=== PATIENT | male | born 1955 | race Asian ===

== ENCOUNTER 2025-01-29 14:30 | Inpatient (IN) | payer BC, OTHER ==
[2025-01-29 16:11] VITALS: BMI 27.3
[2025-01-29] MEDS ORDERED: ONDANSETRON 4 MG/2 ML VIAL IV PRN (17:04)
--- NOTE | 2025-01-29 17:16 | P.HP ---
Certification for Inpatient Patient admitted to: Inpatient With expected LOS: >2 Midnights Practitioner: I am a practitioner with admitting privileges, knowledge of patient current condition, hospital course, and medical plan of care. Services: Services provided to patient in accordance with Admission requirements found in Title 42 Section 412.3 of the Code of Federal Regulations Patient History Date of Service: 01/29/25 Reason for admission: pneumonia, hypoxemia History of Present Illness: 69yo M, PMH: HTN and NIDDM2 Brought to hospital as direct admit from [facility] due to RUL pneumonia with hypoxemia. Patient was in [place] for ~12 days and flew back 3 days ago. States he has been having worsening shortness of breath and cough. Possible subjective fever. He states several other travellers he was with have been sick in the last few days with similar symptoms, with some testing positive for flu, others negative. He reports dealing with a milder version for ~1 month - even before flying to [place], but worse in the last few days. He has taken claritin / zyrtec OTC, but nothing else. At [facility] he was given rocephin/azithro earlier ~1400 today. Reported afebrile there, WBC:9.0, Hgb: 13, Plt: 166. Negative for flu, covid, strep at [facility]. Cr: 1.5, d-dimer: 318. CXR with patchy opacities in the lungs, with area of consolidation in the right upper lung, consistent with pneumonia. At time of my interview - he reports slight improvement compare to when at [facility]. He is tachypneic with mild-moderate labored respirations. Needs to take a breath after 5-8 words. He is accompanied by a friend, who states he is a little better than when first showed up to [facility], and about the same since he left [facility]. No worsening. Allergies No Known Allergies Allergy (Unverified 01/29/25 16:29) Home Medications: Alfuzosin HCl 1 tab PO BEDTIME 01/29/25 Amlodipine [Norvasc*] 1 tab PO DAILY 01/29/25 Atorvastatin Calcium [Lipitor] 10 mg PO BEDTIME 01/29/25 Carvedilol [Coreg] 1 tab PO BID 01/29/25 Hydralazine [Apresoline*] 1 tab PO TID 01/29/25 Metformin HCl 1 tab PO BID 01/29/25 lisinopriL [Lisinopril] 1 tab PO DAILY 01/29/25 - Past Medical/Surgical History Has patient received pneumonia vaccine in the past: Yes Diabetic: No -: Hypertension -: NIDDM2 Past Surgical History: Patient denies surgical history - Family History Father -: Heart disease ([place] in late 50s) Notes: none Mother Notes: none - Social History Smoking Status: Former smoker (quit in ) Alcohol use: No CD- Drugs: No Caffeine use: No Place of Residence: Home Review of Systems 10-point ROS is otherwise unremarkable Physical Examination - Physical Exam General: Alert, Oriented x3, Other (labored respirations) HEENT: EOMI, Sclerae nonicteric Respiratory: Crackles/rales, Expiratory wheezes Cardiovascular: No edema, Regular rate/rhythm, No murmurs Gastrointestinal: Soft and benign, Non-distended, No tenderness Musculoskeletal: No contractures, No tenderness Integumentary: No rashes, No significant lesion Neurological: Normal speech, Normal strength at 5/5 x4 extr Assessment and Plan - Advance Directives Does patient have a Living Will: No Does patient have a Durable POA for Healthcare: No Physician Review Additional Text: Problem List acute hypoxemic respiratory failure secondary to pneumonia HTN NIDDM2 Covid, flu, strep negative at [facility] R sided pneumonia, with reportedly opacities in b/l lungs. CXR CD sent from [facility], however no PCs able to use CDs. Will obtain new CXR here, as well as labs. Per workup at [facility] - has source of infection, and SIRS 1/4, with tachypnea. Normal WBC, normal temp, currently not tachycardic. Check lactate, procal, labs received rocephin and azithro at [facility] a few hours ago. Ordered to resume tomorrow AM add steroids and nebs, pt with some wheezing Pulm consulted Telemetry Blood pressure elevated on arrival here, but patient is more dyspneic and somewhat uncomfortable appearing. He states he did take his meds this morning. Will recheck BP in ~20-30 min after he settles. IV hydralazine PRN if remains elevated confirm home meds, restart VTE: lovenox Code: full Dispo: home, ~3 days Time Spent Managing Pts Care (In Minutes): 70
[2025-01-29] MEDS ORDERED: D10W 125 ML IV PRN (17:53)
[2025-01-29] MEDS ORDERED: GLUCAGON 1 MG/VIAL IM PRN (17:53)
[2025-01-29] MEDS: HYDRALAZINE HCL 20 MG/ML VIAL IV PRN (18:25)
[2025-01-29 19:22] LABS: Albumin 2.8 g/dL (3.4-5.0); Albumin/Globulin Ratio 0.8 (1.1-1.8); Anion Gap 12.7 mEq/L (5.0-15.0); Bilirubin Total 0.5 mg/dL (0.2-1.0); Globulin 3.6 g/dL (2.3-3.5); Magnesium 1.6 mg/dL (1.6-2.4); Potassium 3.7 mEq/L (3.5-5.1); Protein, Total 6.4 g/dL (6.4-8.2)
[2025-01-29 19:26] LABS: Absolute Lymphocytes (CBC) 0.6 K/uL (0.7-4.9); Absolute Neutrophil 5.9 K/uL (1.8-8.0); Hematocrit 37.3 % (39.6-49.0); Hemoglobin 12.9 g/dL (13.6-17.9); Lymphocytes % 8.3 % (15.3-44.8); MCH 30.6 pg (27.0-35.0); MCHC 34.6 g/dL (32.0-36.0); MCV 88.5 fL (80-100); MPV 8.9 fL (7.6-11.3); Monocytes % 13.4 % (3.3-12.3); Neutrophils % 78.3 % (41.7-73.7); Nucleated Red Blood Cells % 0.1 % (0-0); Platelets 138 thou/uL (152-406); RBC Red Blood Cell Count 4.22 M/uL (4.33-5.43); Red Cell Distribution Width 14.8 % (12.1-15.2)
[2025-01-29] MEDS: INSULIN REGULAR (HUMAN) 100 UNIT/ML SQ SCH (20:09)
[2025-01-29] MEDS: carvediloL 12.5 MG TAB ONE (20:45)
[2025-01-29] MEDS: HYDRALAZINE HCL 25 MG TABLET ONE (20:46)
[2025-01-29] MEDS: carvediloL 12.5 MG TAB PO ONE (20:48)
[2025-01-29] MEDS: HYDRALAZINE HCL 25 MG TABLET PO ONE (20:48)
[2025-01-29] MEDS: ALBUTEROL 2.5 MG/3 ML NEB SOL NEB SCH (21:26)
[2025-01-29] MEDS: BUDESONIDE 0.5 MG/2 ML NEB ONE (22:01)
[2025-01-29] MEDS: AMLODIPINE 10 MG TAB PO ONE (22:13)
[2025-01-29] MEDS: lisinopriL 20 MG TAB PO ONE (22:13)
[2025-01-29] MEDS: METHYLPREDNISOLONE 40 MG INJ ONE (22:18)
[2025-01-29] MEDS: METHYLPREDNISOLONE 40 MG INJ IV SCH (22:22)
--- NOTE | 2025-01-29 22:24 | RAD REPORT ---
Procedure: Chest Single View HISTORY: Hypoxia COMPARISON: none FINDINGS: Moderate bilateral lung consolidations. No significant pleural effusion noted. The heart is normal size. IMPRESSION: Moderate bilateral lung consolidations presumably pneumonia. This should be followed until it has arjun ared to a postobstructive process/underlying mass
[2025-01-29] MEDS: BUDESONIDE 0.5 MG/2 ML NEB NEB SCH (22:27)
[2025-01-30 07:11] LABS: Absolute Lymphocytes (CBC) 0.5 K/uL (0.7-4.9); Absolute Monocytes 0.8 K/uL (0.1-1.3); Absolute Neutrophil 7.2 K/uL (1.8-8.0); Basophils % 0.1 % (0-1.3); Hematocrit 37.5 % (39.6-49.0); Lymphocytes % 6.5 % (15.3-44.8); MCH 30.9 pg (27.0-35.0); MCHC 34.6 g/dL (32.0-36.0); MCV 89.4 fL (80-100); MPV 9.3 fL (7.6-11.3); Monocytes % 8.8 % (3.3-12.3); Neutrophils % 84.6 % (41.7-73.7); Platelets 127 thou/uL (152-406); Red Cell Distribution Width 14.9 % (12.1-15.2)
[2025-01-30 07:27] LABS: Albumin 2.4 g/dL (3.4-5.0); Albumin/Globulin Ratio 0.6 (1.1-1.8); Anion Gap 12.9 mEq/L (5.0-15.0); Bilirubin Total 0.4 mg/dL (0.2-1.0); Globulin 3.8 g/dL (2.3-3.5); Potassium 3.9 mEq/L (3.5-5.1); Protein, Total 6.2 g/dL (6.4-8.2)
[2025-01-30] MEDS: AZITHROMYCIN IV 500 MG in NA CHLORIDE 0.9% 250 ML IVPB SCH (08:28)
[2025-01-30] MEDS: POTASSIUM CL SA 10 MEQ TAB PO ONE (08:29)
[2025-01-30] MEDS: CEFTRIAXONE 1,000 MG in NA CHLORIDE 0.9% 50 ML IVPB SCH (08:29)
[2025-01-30] MEDS: ENOXAPARIN 40 MG/0.4 ML SQ SCH (08:30)
[2025-01-30] MEDS: lisinopriL 20 MG TAB PO SCH (10:34)
[2025-01-30] MEDS: AMLODIPINE 10 MG TAB PO SCH (10:35)
[2025-01-30 10:36] LABS: Band Neutrophils 13 % (0-1); Differential Total Cells Count 100; Lymphocytes 8 % (15-42); Metamyelocytes 4 % (0-0); Monocytes 8 % (0-10); Myelocytes 2 % (0-0); Nucleated Red Blood Cells 1 /100WBC; Platelet Estimate ADEQ; Reactive Lymphocytes 1 %; Segmented Neutrophils 64 % (40-80)
[2025-01-30 10:37] LABS: Blood Morphology Comment NOT SEEN (NOT SEEN)
--- NOTE | 2025-01-30 12:43 | P.CNS ---
Date of Consult: 01/30/25 Reason for Consult: Pneumonia Chief Complaint: pneumonia, hypoxemia History of Present Illness: Patient is 69 years of age no prior significant pulmonary complaints apparently he just came back from [place] developed worse congestion cough shortness of breath does not smoke patient was found to have bilateral pulmonary infiltrates denies any fever or chills no chest pain Allergies No Known Allergies Allergy (Unverified 01/29/25 16:29) Home Medications: Alfuzosin HCl 1 tab PO BEDTIME 01/29/25 Amlodipine [Norvasc*] 1 tab PO DAILY 01/29/25 Atorvastatin Calcium [Lipitor] 10 mg PO BEDTIME 01/29/25 Carvedilol [Coreg] 1 tab PO BID 01/29/25 Hydralazine [Apresoline*] 1 tab PO TID 01/29/25 Metformin HCl 1 tab PO BID 01/29/25 lisinopriL [Lisinopril] 1 tab PO DAILY 01/29/25 - Past Medical/Surgical History Diabetic: No -: Hypertension -: NIDDM2 - Family History Father Medical History: Heart disease ([place] in late 50s) Notes: none Mother Notes: none - Social History Alcohol use: No CD- Drugs: No Caffeine use: No Place of Residence: Home Review of Systems 10-point ROS is otherwise unremarkable General: Weakness Respiratory: Cough, Shortness of Breath Physical Examination Temp Pulse Resp BP Pulse Ox 99.7 F 85 16 152/84 H 94 01/30/25 12:00 01/30/25 12:00 01/30/25 12:00 01/30/25 12:00 01/30/25 12:00 General: Alert, Oriented x3, Moderate distress Respiratory: Crackles/rales Cardiovascular: No edema, Regular rate/rhythm, Normal S1 S2 Gastrointestinal: Normal bowel sounds, Soft and benign Laboratory Data (last 24 hrs) 01/30/25 01/30/25 01/29/25 06:32 06:32 18:42 WBC 8.50 Hgb 13.0 L Hct 37.5 L Plt Count 127 L Sodium 128 L 128 L Potassium 3.9 3.7 BUN 31 H 28 H Creatinine 1.77 H 1.67 H Glucose 314 H 294 H Magnesium 2.0 1.6 Total Bilirubin 0.4 0.5 AST 65 H 57 H ALT 46 42 Alkaline Phosphatase 57 62 01/29/25 18:42 WBC 7.60 Hgb 12.9 L Hct 37.3 L Plt Count 138 L Sodium Potassium BUN Creatinine Glucose Magnesium Total Bilirubin AST ALT Alkaline Phosphatase - Problems (1) Pneumonia Current Visit: Yes Status: Acute Plan: Patient is 69 years of age admitted with severe community-acquired pneumonia has bilateral infiltrates patient has mild hyponatremia and renal insufficiency agree with the antibiotics and steroids for now patient is also hypoxic renal ultrasound urinalysis also had Lasix DC nebulized with budesonide Qualifiers: Pneumonia type: due to unspecified organism Laterality: bilateral
[2025-01-30] MEDS: FUROSEMIDE 40 MG/4 ML VIAL IV SCH (13:40)
[2025-01-30 14:37] LABS: Sqamous Epithelial None Seen /HPF (None Seen); Urine Bacteria <20 /HPF (<20); Urine Bilirubin NEGATIVE (Negative); Urine Blood 2+ (Negative); Urine Clarity Clear (Clear); Urine Color Colorless (Yellow); Urine Glucose 4+ (Over) (Negative); Urine Ketones NEGATIVE (Negative); Urine Micro Reflex YN NO BILL MICROSCOPIC; Urine Nitrite NEGATIVE (Negative); Urine Protein 2+ (Negative); Urine RBC <5 /HPF (None Seen); Urine Urobilinogen Normal (Normal); Urine WBC <5 /HPF (<5)
--- NOTE | 2025-01-30 16:16 | P.PN ---
Subjective Date of Service: 01/30/25 Chief Complaint: pneumonia, hypoxemia Patient is reporting shortness of breath. He is coughing and short of breath with speaking. He reports nonproductive cough. No recorded fever since admission. Physical Examination - Vital Signs Temperature: 98.4 F Blood Pressure: 117/67 Pulse: 80 Respirations: 14 Pulse Ox (%): 91 - Studies Laboratory Data (last 24 hrs) 01/30/25 01/30/25 01/29/25 06:32 06:32 18:42 WBC 8.50 Hgb 13.0 L Hct 37.5 L Plt Count 127 L Sodium 128 L 128 L Potassium 3.9 3.7 BUN 31 H 28 H Creatinine 1.77 H 1.67 H Glucose 314 H 294 H Magnesium 2.0 1.6 Total Bilirubin 0.4 0.5 AST 65 H 57 H ALT 46 42 Alkaline Phosphatase 57 62 01/29/25 18:42 WBC 7.60 Hgb 12.9 L Hct 37.3 L Plt Count 138 L Sodium Potassium BUN Creatinine Glucose Magnesium Total Bilirubin AST ALT Alkaline Phosphatase Assessment And Plan - Plan Physical examination General: Alert and oriented x3, NAD, HEENT: Conjunctiva not pale, anicteric sclera Neck: Supple, no elevated JVD Heart: Heart sounds 1 and 2 normal, regular rhythm, normal rate, no pedal edema Lungs: Bilateral crackles, mild scattered wheezes adequate breath sounds bilaterally. Abdomen: Soft, nondistended, nontender, normal bowel sounds. Extremities: No tenderness, no deformity Skin: Normal skin turgor, no rash, no nodules or ulcers. Neuro: No focal motor deficit. Normal speech. Psychiatry: Normal mood, no agitation. Problem List acute hypoxemic respiratory failure secondary to pneumonia HTN NIDDM2 Plan Acute respiratory failure with hypoxia secondary to pneumonia Bilateral pneumonia Hypertension Oad-lwxudar-uforlowhj diabetes Plan: Acute respiratory failure with hypoxia secondary to pneumonia Bilateral pneumonia Continue IV Rocephin and Zithromax for community-acquired pneumonia Chest physiotherapy with flutter device Bronchodilators as needed IV steroid Pulmonary Dr. Jacobs input appreciated. Significantly elevated Pro-Armand. Monitor procalcitonin level. Essential hypertension Home antihypertensives resumed. Blood pressure has improved today. Hydralazine IV as needed for BP spikes. Diabetes mellitus type 2 Patient has hyperglycemia Steroids may be contributing to hyperglycemia Insulin sliding scale Add Lantus insulin and titrate. VTE: lovenox Code: full Dispo: home.
--- NOTE | 2025-01-30 16:56 | RAD REPORT ---
EXAMINATION: US RETROPERITONEUM CLINICAL INDICATION: Renal failure TECHNIQUE: Real-time ultrasonography of the abdomen was performed. COMPARISON: No prior exam. FINDINGS: RIGHT KIDNEY: Right renal length measurement: 11.3 cm. Echogenicity is normal. No calculus or solid mass. No hydronephrosis. . 11 mm cyst at the upper pole. LEFT KIDNEY: Left renal length measurement: 12 cm. Echogenicity is normal. Hypoechoic lesion at the left kidney measuring 2.8 x 2 cm. No hydronephrosis. . ADDITIONAL FINDINGS: Irregular structure within the bladder lumen, possibly a markedly enlarged media n lobe of the prostate versus hemorrhage or mass. IMPRESSION: Hypoechoic left renal lesion is indeterminate. Complex cyst or cystic lesion not excluded. This could be further evaluated with hematuria protocol CT or renal protocol MRI. Irregular filling defect in the bladder could be hemorrhage, pronounced median lobe hypertrophy, or a bladder mass. Consider cystoscopy or hematuria protocol CT when the patient's condition permits. No evidence of hydronephrosis.
[2025-01-30] MEDS: INSULIN GLARGINE 100 UNIT/ML SQ SCH (20:34)
[2025-01-30] MEDS: TAMSULOSIN 0.4 MG SR CAP PO SCH (20:34)
[2025-01-30] MEDS: ATORVASTATIN 10 MG TAB PO SCH (20:34)
[2025-01-30] MEDS: FAMOTIDINE 20 MG TAB PO SCH (20:34)
[2025-01-30] MEDS ORDERED: FAMOTIDINE 10 MG PO SCH (21:00)
[2025-01-30] MEDS ORDERED: HOME MED 1 EA UNK (Alfuzosin Hcl [Alfuzosin Hcl] 10 MG Tab.Er.24h) PO SCH (21:00)
[2025-01-31] MEDS: KETOROLAC OPTH SCH (00:24)
[2025-01-31] MEDS: HYDROCODONE/CHLORPHEN 5 ML/OSYR PO PRN (08:32)
--- NOTE | 2025-01-31 12:56 | P.PN ---
Subjective Date of Service: 01/31/25 Chief Complaint: pneumonia, hypoxemia No change in patient condition is still clinical complains of cough congestion Review of Systems General: Weakness Respiratory: Cough, Shortness of Breath Physical Examination - Vital Signs Temperature: 98.0 F Blood Pressure: 158/78 Pulse: 106 Respirations: 16 Pulse Ox (%): 94 - Physical Exam General: Alert, Oriented x3 Respiratory: Crackles/rales, Rhonchi/gurgles Cardiovascular: No edema, Regular rate/rhythm Gastrointestinal: Normal bowel sounds, Soft and benign Assessment And Plan - Current Problems (Diagnosis) (1) Pneumonia Current Visit: Yes Status: Acute Plan: Patient is 69 years of age admitted with bilateral pneumonia not seems to be improving changed to p.o. high-dose levofloxacin DC Rocephin and Zithromax globe changer to p.o. prednisone flutter valve repeat chest x-ray echocardiogram is pending patient is on IV Lasix resume his home antihypertensive medication Qualifiers: Pneumonia type: due to unspecified organism Laterality: bilateral
[2025-01-31] MEDS: DOCUSATE NA 100 MG CAP PO SCH (13:07)
[2025-01-31] MEDS: INSULIN GLARGINE 100 UNIT/ML SQ ONE (13:07)
[2025-01-31] MEDS: levoFLOXacin 750 MG TAB PO SCH (15:29)
[2025-01-31] MEDS: HYDRALAZINE HCL 25 MG TABLET PO SCH (15:30)
[2025-01-31] MEDS: METFORMIN HCL 500 MG TAB PO SCH (16:14)
[2025-01-31] MEDS: INSULIN REGULAR (HUMAN) 100 UNIT/ML SQ SCH (16:14)
--- NOTE | 2025-01-31 18:31 | P.PN ---
Subjective Date of Service: 01/31/25 Chief Complaint: pneumonia, hypoxemia Patient states he feels better however family is concerned and oxygen saturation fell to 91% after exerting himself. Patient reports persistent cough all night and not being able to sleep because of the coughing however he stated the coughing is much better today. No recorded fever. Physical Examination - Vital Signs Temperature: 98.0 F Blood Pressure: 174/74 Pulse: 116 Respirations: 16 Pulse Ox (%): 93 Assessment And Plan - Plan Physical examination General: Alert and oriented x3, NAD, HEENT: Conjunctiva not pale, anicteric sclera Neck: Supple, no elevated JVD Heart: Heart sounds 1 and 2 normal, regular rhythm, tachycardia, no pedal edema Lungs: Bilateral crackles, no wheezes, adequate breath sounds bilaterally. Abdomen: Soft, nondistended, nontender, normal bowel sounds. Extremities: No tenderness, no deformity Skin: Normal skin turgor, no rash, no nodules or ulcers. Neuro: No focal motor deficit. Normal speech. Psychiatry: Normal mood, no agitation. Problem List acute hypoxemic respiratory failure secondary to pneumonia HTN NIDDM2 Plan Acute respiratory failure with hypoxia secondary to pneumonia Bilateral pneumonia Hypertension Jyj-iuuytbi-hhddiwwdy diabetes Plan: Acute respiratory failure with hypoxia secondary to pneumonia Bilateral pneumonia Continue IV Rocephin and Zithromax for community-acquired pneumonia Chest physiotherapy with flutter device and incentive spirometry. Bronchodilators as needed IV steroid transitioned to oral prednisone Pulmonary Dr. Coombs is following Check procalcitonin level in a.m. Repeat chest x-ray result is pending. Essential hypertension Home antihypertensives resumed. Blood pressure has improved today. Hydralazine IV as needed for BP spikes. Diabetes mellitus type 2 Patient has hyperglycemia Steroids may be contributing to hyperglycemia Insulin sliding scale Lantus insulin added and titrated to 20 units daily. Patient home dose metformin restarted per Dr. Coombs VTE: lovenox Code: full Dispo: home.
--- NOTE | 2025-01-31 19:04 | RAD REPORT ---
EXAMINATION: ONE VIEW CHEST XR CLINICAL INDICATION: Male, 69 years old.,Follow up bilateral pneumonia TECHNIQUE: Frontal chest projection is submitted. Examination is limited by patient positioning and t echnique. COMPARISON: 01/29/2025 FINDINGS: Stable peripheral consolidative opacities in the right upper lobe, and left midlung, concerning for p neumonia. Right perihilar interstitial prominence again seen. No pneumothorax or sizable effusion. Stable cardiomegaly. Mediastinal contours are unremarkable. IMPRESSION: Stable findings as above.
[2025-01-31] MEDS: Meropenem 1,000 MG in NA CHLORIDE 0.9% 100 ML IV SCH (20:13)
[2025-01-31] MEDS: INSULIN GLARGINE 100 UNIT/ML SQ SCH (20:14)
[2025-01-31] MEDS: carvediloL 12.5 MG TAB PO SCH (20:14)
[2025-01-31] MEDS: predniSONE 20 MG TAB PO SCH (20:14)
[2025-01-31] MEDS ORDERED: HOME MED 1 EA UNK (Metformin Hcl [Metformin Hcl] 1,000 MG Tablet) PO SCH (21:00)
[2025-02-01] MEDS: BUDESONIDE 0.5 MG/2 ML NEB ONE (04:24)
[2025-02-01] MEDS: METOPROLOL TARTRATE 5 MG/5 ML INJ IV ONE ×2 (04:30→06:01)
[2025-02-01 04:32] LABS: Absolute Lymphocytes (CBC) 0.3 K/uL (0.7-4.9); Absolute Neutrophil 9.9 K/uL (1.8-8.0); Basophils % 0.1 % (0-1.3); Hematocrit 35.9 % (39.6-49.0); Hemoglobin 12.3 g/dL (13.6-17.9); Lymphocytes % 2.7 % (15.3-44.8); MCHC 34.4 g/dL (32.0-36.0); MCV 87.2 fL (80-100); MPV 9.5 fL (7.6-11.3); Monocytes % 8.9 % (3.3-12.3); Nucleated Red Blood Cells % 0.1 % (0-0); Platelets 143 thou/uL (152-406); RBC Red Blood Cell Count 4.11 M/uL (4.33-5.43); Red Cell Distribution Width 14.8 % (12.1-15.2)
[2025-02-01 04:34] LABS: Neutrophils % 88.3 % (41.7-73.7)
[2025-02-01] MEDS: METOPROLOL TARTRATE 5 MG/5 ML INJ IV STA ×3 (04:34→10:43)
[2025-02-01] MEDS: BUDESONIDE 0.5 MG/2 ML NEB NEB SCH (04:48)
[2025-02-01] MEDS: ACETAMINOPHEN 500 MG TAB PO PRN (04:48)
[2025-02-01 04:56] LABS: Anion Gap 13.7 mEq/L (5.0-15.0); Magnesium 1.9 mg/dL (1.6-2.4); Potassium 3.7 mEq/L (3.5-5.1)
[2025-02-01 05:22] LABS: Arterial Blood Carboxyhemoglob 0.9 % (0-1.5); Blood Gas Oxyhemoglobin 93.3 % (94-97); Blood O2 Saturation 94.8 % (92-98.5)
[2025-02-01 05:23] LABS: Blood Gas THB 13.2 g/dl (12-18)
[2025-02-01 05:43] LABS: Influenza A Ag Negative; Influenza B Ag Negative; SARS-CoV-2 Antigen Rapid Res Negative (Negative)
[2025-02-01 05:52] LABS: PT Prothrombin Time 14.1 SECONDS (10-13.0); PTT, Activated Partial Thromb 31.5 SECONDS (27.2-37.4); Protime INR 1.25
[2025-02-01 05:54] LABS: Albumin 2.2 g/dL (3.4-5.0); Albumin/Globulin Ratio 0.5 (1.1-1.8); Bilirubin Direct 0.3 mg/dL (0-0.2); Bilirubin Indirect, Calculated 0.3 mg/dL (0.2-0.8); Bilirubin Total 0.6 mg/dL (0.2-1.0); Globulin 4.4 g/dL (2.3-3.5); Protein, Total 6.6 g/dL (6.4-8.2)
[2025-02-01] MEDS: METOPROLOL XL 50 MG TAB PO SCH (05:56)
--- NOTE | 2025-02-01 07:55 | RAD REPORT ---
EXAMINATION: ONE VIEW CHEST XR CLINICAL INDICATION: pneumonia TECHNIQUE: Frontal chest projection is submitted. Examination is limited by patient positioning and t echnique. COMPARISON: 01/31/2025 FINDINGS: There has been mild worsening bibasilar lung infiltrate pattern since comparison study, particularly on the left. Right midlung oblong opacity abutting the pleura also has mildly progressed. The heart is normal in size. No displaced fractures identified. IMPRESSION: [id number] worsening in lung aeration noted since comparative study from yesterday.
--- NOTE | 2025-02-01 12:19 | P.PN ---
Subjective Date of Service: 02/01/25 Chief Complaint: pneumonia, hypoxemia No change in patient condition is still clinical complains of cough congestion Physical Examination - Vital Signs Temperature: 99.2 F Blood Pressure: 127/64 Pulse: 131 Respirations: 18 Pulse Ox (%): 96 - Studies Laboratory Data (last 24 hrs) 02/01/25 02/01/25 02/01/25 05:34 05:04 04:37 WBC Hgb Hct Plt Count PT 14.1 H INR 1.25 APTT 31.5 Sodium Potassium BUN Creatinine Glucose Magnesium Cancelled Total Bilirubin Cancelled AST Cancelled ALT Cancelled Alkaline Phosphatase Cancelled Lipase Cancelled 02/01/25 02/01/25 04:13 04:13 WBC 11.30 H Hgb 12.3 L Hct 35.9 L Plt Count 143 L PT INR APTT Sodium 134 L Potassium 3.7 BUN 45 H Creatinine 1.88 H Glucose 104 Magnesium 1.9 Total Bilirubin 0.6 AST 369 H ALT 329 H Alkaline Phosphatase 99 Lipase 103 H Assessment And Plan - Current Problems (Diagnosis) (1) Pneumonia Current Visit: Yes Status: Acute Plan: Patient is 69 years of age admitted with bilateral pneumonia not seems to be improving changed to p.o. high-dose levofloxacin DC Rocephin and Zithromax foreign exchange dealer to p.o. prednisone flutter valve repeat chest x-ray echocardiogram is pending patient is on IV Lasix resume his home antihypertensive medication Qualifiers: Pneumonia type: due to unspecified organism Laterality: bilateral
[2025-02-01] MEDS ORDERED: VANCOMYCIN 2 GM in NA CHLORIDE 0.9% 500 ML IVPB ONE (13:00)
[2025-02-01] MEDS: AMIODARONE HCL 150 MG in D5W 100 ML IV STA (13:14)
[2025-02-01] MEDS: AMIODARONE HCL 900 MG in Dextrose 5%-Water 482 ML IV SCH (13:14)
[2025-02-01] MEDS: HEPARIN/D5W 25,000 UNIT/500 ML BAG IV SCH (13:45)
[2025-02-01] MEDS: DOXYCYCLINE 100 MG CAP PO SCH (13:45)
[2025-02-01 13:52] VITALS: O2SAT 93
--- NOTE | 2025-02-01 14:12 | P.CNS ---
Date of Consult: 02/01/25 Chief Complaint: pneumonia, hypoxemia History of Present Illness: Patient with no significant PMH of heart disease, presented and getting treated for PNA, patient developed AF during hospital stay and cardiology were consulted, denies chest pain, no syncope. Allergies No Known Allergies Allergy (Unverified 01/29/25 16:29) Home medications list reviewed: Yes Home Medications: Alfuzosin HCl 1 tab PO BEDTIME 01/29/25 Amlodipine [Norvasc*] 1 tab PO DAILY 01/29/25 Atorvastatin Calcium [Lipitor] 10 mg PO BEDTIME 01/29/25 Carvedilol [Coreg] 1 tab PO BID 01/29/25 Hydralazine [Apresoline*] 1 tab PO TID 01/29/25 Metformin HCl 1 tab PO BID 01/29/25 lisinopriL [Lisinopril] 1 tab PO DAILY 01/29/25 Dulaglutide [Trulicity] 3 mg SQ EVERY 7TH DAY 01/30/25 Famotidine [Pepcid AC] 10 mg PO BEDTIME 01/30/25 Ketorolac Opth [Acular 0.5% Opth Drops] 5 ml OPTH QID 01/30/25 - Past Medical/Surgical History Diabetic: No -: Hypertension -: NIDDM2 - Family History Father Medical History: Heart disease ([place] in late 50s) Notes: none Mother Notes: none - Social History Alcohol use: No CD- Drugs: No Caffeine use: No Place of Residence: Home Review of Systems 10-point ROS is otherwise unremarkable Physical Examination Temp Pulse Resp BP Pulse Ox 100.4 F 157 H 18 127/64 93 02/01/25 13:50 02/01/25 13:25 02/01/25 12:19 02/01/25 12:19 02/01/25 13:25 General: Alert, In no apparent distress HEENT: Atraumatic, PERRLA, Mucous membr. moist/pink, EOMI, Sclerae nonicteric Neck: Supple, 2+ carotid pulse no bruit, No LAD, Without JVD or thyroid a bnormality Respiratory: Clear to auscultation bilaterally, Normal air movement Cardiovascular: Normal S1 S2, Irregular heart rate/rhythm Gastrointestinal: Normal bowel sounds, No tenderness Musculoskeletal: No tenderness Integumentary: No rashes Neurological: Normal gait, Normal speech, Normal tone, Normal affect Lymphatics: No axilla or inguinal lymphadenopathy Laboratory Data (last 24 hrs) 02/01/25 02/01/25 02/01/25 05:34 05:04 04:37 WBC Hgb Hct Plt Count PT 14.1 H INR 1.25 APTT 31.5 Sodium Potassium BUN Creatinine Glucose Magnesium Cancelled Total Bilirubin Cancelled AST Cancelled ALT Cancelled Alkaline Phosphatase Cancelled Lipase Cancelled 02/01/25 02/01/25 04:13 04:13 WBC 11.30 H Hgb 12.3 L Hct 35.9 L Plt Count 143 L PT INR APTT Sodium 134 L Potassium 3.7 BUN 45 H Creatinine 1.88 H Glucose 104 Magnesium 1.9 Total Bilirubin 0.6 AST 369 H ALT 329 H Alkaline Phosphatase 99 Lipase 103 H - Problems (1) Atrial fibrillation Current Visit: Yes Status: Acute Plan: Amiodarone 150 mg IV X1 then continue amdioarone drip per protocol Heparin drip continue to monitor on tele (2) HTN (hypertension) Current Visit: Yes Status: Acute Plan: continue coreg and lisinopril. (3) Pneumonia Current Visit: Yes Status: Acute Plan: continue ABX per primary team. Qualifiers: Pneumonia type: due to unspecified organism Laterality: bilateral
--- NOTE | 2025-02-01 14:19 | ECHO ---
HEIGHT: 5 ft 8 in WEIGHT: 176 lb 6 oz DATE OF STUDY: 02/01/[address]: Bala Coombs MD 2-DIMENSIONAL: YES M.MODE: YES DOPPLER: YES COLOR FLOW: YES TDS: NO PORTABLE: YES DEFINITY: NO BUBBLE STUDY: NO DIAGNOSIS: RESPIRATORY FAILURE CARDIAC HISTORY: CATHERIZATION: NO SURGERY: NO PROSTHETIC VALVE: NO PACEMAKER: NO MEASUREMENTS (cm) DIASTOLIC (NORMALS) SYSTOLIC (NORMALS) IVSd 1.2 (0.6-1.2) LA Diam 3.5 (1.9-4.0) LVEF 65% LVIDd 4.8 (3.5-5.7) LVIDs 3.1 (2.0-3.5) %FS 36% LVPWd 1.3 (0.6-1.2) Ao Diam 2.8 (2.0-3.7) 2 DIMENSIONAL ASSESSMENT: RIGHT ATRIUM: NORMAL LEFT ATRIUM: NORMAL RIGHT VENTRICLE: NORMAL LEFT VENTRICLE: NORMAL TRICUSPID VALVE: MILD TRICUSPID REGURGITATION MITRAL VALVE: TRACE OF TRICUSPID REGURGITATION PULMONIC VALVE: NORMAL AORTIC VALVE: NORMAL PERICARDIAL EFFUSION: NONE AORTIC ROOT: NORMAL LEFT VENTRICULAR WALL MOTION: NORMAL. DOPPLER/COLOR FLOW: NORMAL. COMMENTS: NORMAL LEFT VENTRICULAR SYSTOLC FUNCTION, EJECTION FRACTION 60-65%, NORMAL WALL MOTION. TECHNOLOGIST: JIA SCOTT
--- NOTE | 2025-02-01 17:13 | P.DS ---
Admission Date: 01/29/25 Discharge Date: 02/01/25 Disposition: TRANSFER TO [facility] Reason for Admission: pneumonia, hypoxemia Brief History of Present Illness: 69yo M, PMH: HTN and NIDDM2 presented to the hospital as direct admit from [place] [facility] due to RUL pneumonia with hypoxemia. Patient was in [place] for about 12 days and flew back 3 days prior and reported worsening shortness of breath. States he has been having worsening shortness of breath and cough. Possible subjective fever. He reported contact with out of travel as well also sick, with some testing positive for flu, others negative. He reports dealing with a milder version even before flying to [place]. He took claritin / zyrtec OTC without any improvement. At [place] he was given rocephin/azithro and transferred here for further management. He was negative for flu, covid, and strep, Cr: 1.5, d-dimer: 318 at [place]. CXR with patchy opacities in the lungs, with area of consolidation in the right upper lung, consistent with pneumonia. Hospital Course: Problem List acute hypoxemic respiratory failure secondary to pneumonia HTN NIDDM2 Plan Acute respiratory failure with hypoxia secondary to pneumonia Bilateral pneumonia Hypertension Kzj-[id number]-[id number] diabetes Patient admitted to the medical floor and the following medical problems addressed: Acute respiratory failure with hypoxia secondary to pneumonia Bilateral pneumonia Patient treated with IV Rocephin and Zithromax for possible community-acquired pneumonia. Chest x-ray department suggested atypical pneumonia. Patient seen and evaluated by pulmonary Dr. Coombs and antibiotics changed to Levaquin. IV meropenem added because patient respiratory condition got worse. Patient later developed more respiratory distress and required high flow oxygen with 100% FiO2 and 30 L flow per minute. Patient subsequently transferred to the ICU on BiPAP. He developed atrial fibrillation which is new onset, patient denies any prior h istory of atrial fibrillation. Chest physiotherapy with flutter device and incentive spirometry done. Patient also treated with bronchodilators and steroids Procalcitonin was significantly elevated and got worse. He was not able to provide any sputum sample for examination. Patient respiratory condition has been progressively getting worse, general consensus with the family was to transfer patient to a tertiary level of care. Viral pneumonia is highly possible and patient may need supportive care under an rails developer. Transfer to [facility] initiated. Patient has been accepted for [facility]. Benefit for transfer to a tertiary center outweighs risk Essential hypertension Patient blood pressure was borderline low this morning. His antihypertensives-lisinopril and amlodipine were held today. Patient was given metoprolol for new onset A-fib. New onset atrial fibrillation Patient was initially given metoprolol but his heart rate did not respond to the metoprolol. He was seen and evaluated by cardiology and he was started on amiodarone drip. Diabetes mellitus type 2 Patient has hyperglycemia Steroids may be contributing to hyperglycemia Blood sugar was managed with insulin sliding scale and Lantus insulin. Lantus insulin was titrated to 20 units daily. Home dose metformin and Trulicity were also resumed. Vital Signs/Physical Exam: Temp Pulse Resp BP Pulse Ox 98.4 F 150 H 29 H 119/90 93 02/01/25 14:50 02/01/25 14:00 02/01/25 14:00 02/01/25 14:00 02/01/25 14:00 General: Alert, Mild distress HEENT: Mucous membr. moist/pink Neck: Supple, JVD not distended Respiratory: Crackles/rales (Bilateral) Cardiovascular: Normal S1 S2, Irregular heart rate/rhythm Gastrointestinal: Normal bowel sounds, Soft and benign, Non-distended Musculoskeletal: No swelling, No tenderness Integumentary: No rashes, No cyanosis Neurological: Normal speech, Normal strength at 5/5 x4 extr Laboratory Data at Discharge: WBC 11.30 thou/uL (4.3-10.9) H 02/01/25 04:13 Hgb 12.3 g/dL (13.6-17.9) L 02/01/25 04:13 Hct 35.9 % (39.6-49.0) L 02/01/25 04:13 Plt Count 143 thou/uL (152-406) L 02/01/25 04:13 PT 14.1 SECONDS (10-13.0) H 02/01/25 05:34 INR 1.25 02/01/25 05:34 APTT 31.5 SECONDS (27.2-37.4) 02/01/25 05:34 Sodium 134 mEq/L (136-145) L 02/01/25 04:13 Potassium 3.7 mEq/L (3.5-5.1) 02/01/25 04:13 BUN 45 mg/dL (7-18) H 02/01/25 04:13 Creatinine 1.88 mg/dL (0.70-1.30) H 02/01/25 04:13 Glucose 104 mg/dL (74-106) 02/01/25 04:13 Magnesium Cancelled 02/01/25 04:37 Total Bilirubin Cancelled 02/01/25 05:04 AST Cancelled 02/01/25 05:04 ALT Cancelled 02/01/25 05:04 Alkaline Phosphatase Cancelled 02/01/25 05:04 Lipase Cancelled 02/01/25 05:04 Home Medications: Alfuzosin HCl 1 tab PO BEDTIME 01/29/25 Amlodipine [Norvasc*] 1 tab PO DAILY 01/29/25 Atorvastatin Calcium [Lipitor*] 10 mg PO BEDTIME 01/29/25 Carvedilol [Coreg] 1 tab PO BID 01/29/25 Hydralazine [Apresoline*] 1 tab PO TID 01/29/25 Metformin HCl 1 tab PO BID 01/29/25 lisinopriL [Lisinopril] 1 tab PO DAILY 01/29/25 Dulaglutide [Trulicity] 3 mg SQ EVERY 7TH DAY 01/30/25 Famotidine [Pepcid AC] 10 mg PO BEDTIME 01/30/25 Ketorolac Opth [Acular 0.5% Opth Drops*] 5 ml OPTH QID 01/30/25 Docusate [Colace Cap*] 100 mg PO BID cap 02/01/25 Furosemide [Lasix 40 MG INJ*] 40 mg IV DAILY vial 02/01/25 Hydrocodone/Chlorphen Polis [Tussionex Oral Susp*] 5 ml PO BID PRN osyr 02/01/25 Insulin Glargine,Hum.rec.anlog [Semglee] 20 unit SQ BEDTIME ml 02/01/25 Insulin Regular, Human [Novolin R] See Protocol SQ ACHS ml 02/01/25 Levalbuterol [Xopenex*] 1.25 mg NEB [id number] vial 02/01/25 Metoprolol Succinate [Toprol Xl*] 50 mg PO [id number] tab 02/01/25 Mupirocin Calcium [Bactroban Nasal*] 1 appl LATA BID tube 02/01/25 Ondansetron [Zofran*] 4 mg IV Q6HP PRN vial 02/01/25 predniSONE [Prednisone*] 20 mg PO BID tab 02/01/25 Followup: OOTHilarioOT [Primary Care Provider] - Time spent managing pt's care (in minutes): 38
[2025-02-01 17:19] VITALS: BP 124/67; TEMP 97.5
[2025-02-01] MEDS ORDERED: LEVALBUTEROL 1.25 MG/3 ML NEB NEB SCH (19:00)
--- NOTE | 2025-02-01 20:33 | RAD REPORT ---
EXAMINATION: CT Thorax Wo Con CLINICAL INDICATION: Male, 69 years old. [facility] MAIN Pneumonia Y TECHNIQUE: Axial CT scan of the chest without intravenous contrast. Multiplanar reformats were genera earl and reviewed. One or more of the following dose reduction techniques were used: Automated exposure control, adjustment of the mA and/or kV according patient size, and/or iterative reconstruct ion. Unless otherwise specified, incidental findings do not require dedicated imaging follow-up. COMPARISON: Chest radiograph of earlier the same day FINDINGS: Motion artifact somewhat limits evaluation. LOWER NECK: Visualized thyroid gland and soft tissues are normal. LUNGS: Patchy consolidative opacities throughout the lungs, most confluent in the peripheral right up per lobe abutting the minor fissure, and lower aspects of the left upper lobe. Attenuated caliber and partial opacification of the right bronchus intermedius and its branches, could relate to secreti ons. PLEURA: No pleural effusion. No pneumothorax. . MEDIASTINUM AND LYMPH NODES: No mediastinal mass or fluid collection. Normal size mediastinal, hilar, and axillary lymph nodes. OSSEOUS STRUCTURES AND CHEST WALL: Intact. UPPER ABDOMEN: No significant abnormalities. IMPRESSION: Bilateral patchy consolidative airspace opacities most pronounced in the peripheral right upper lobe and lower aspects of the left upper lobe, concerning for multifocal pneumonia.
[2025-02-01] MEDS ORDERED: Mupirocin NASAL 2 APPL/1 GM TUBE NAS SCH (21:00)
--- NOTE | 2025-02-05 16:58 | EKG ---
Test Date: 2025-02-01 Test Time: 03:29:33 Refuse Collector: NEDA MEASUREMENT RESULTS: Intervals: Rate: 158 TN: QRSD: 80 QT: 284 QTc: 460 [place]: P: TN: QRS: 88 T: 45 INTERPRETIVE STATEMENTS: Atrial fibrillation with rapid ventricular response with premature ventricular or aberrantly conducted complexes Abnormal ECG No previous ECG available for comparison Electronically Signed On 02-05-25 16:51:39 CDT by Giancarlo Mccauley
--- NOTE | 2025-02-05 16:58 | EKG ---
Test Date: 2025-02-01 Test Time: 03:32:03 Emergency Medical Tech: NEDA MEASUREMENT RESULTS: Intervals: Rate: 143 UT: QRSD: 68 QT: 274 QTc: 422 [place]: P: UT: QRS: 89 T: 95 INTERPRETIVE STATEMENTS: Atrial fibrillation with rapid ventricular response Abnormal ECG Compared to ECG 02/01/2025 03:29:33 Ventricular premature complex(es) no longer present Electronically Signed On 02-05-25 16:51:35 CDT by Giancarlo Mccauley
[2025-02-07] MEDS ORDERED: DULAGLUTIDE 3 MG/0.5 ML SQ SCH (09:00)
== END 2025-02-01 17:10 | disposition short-term general hospital (02) | DRG 193 ==
LOC: 4TH 14:30 → 3RD-ICU 02-01 09:24
PROVIDERS: ADMIT Hospitalist; ATTEND Internal Medicine
PROC: 4A033R1 Measurement of Arterial Saturation, Peripheral, Percutaneous Approach (ICD-10-PCS; principal; 2025-01-29)
PROC: 5A09357 Assistance with Respiratory Ventilation, Less than 24 Consecutive Hours, Continuous Positive Airway Pressure (ICD-10-PCS; 2025-01-29)
PROC: 5A0935A Assistance with Respiratory Ventilation, Less than 24 Consecutive Hours, High Flow/Velocity Cannula (ICD-10-PCS; 2025-02-01)
PROC: 02HV33Z Insertion of Infusion Device into Superior Vena Cava, Percutaneous Approach (ICD-10-PCS; 2025-02-01)
DX: J18.9 Pneumonia, unspecified organism (principal); J96.01 Acute respiratory failure with hypoxia; E87.1 Hypo-osmolality and hyponatremia; I10 Essential (primary) hypertension; I48.91 Unspecified atrial fibrillation; E11.65 Type 2 diabetes mellitus with hyperglycemia; N28.9 Disorder of kidney and ureter, unspecified; Z11.52 Encounter for screening for COVID-19; Z79.52 Long term (current) use of systemic steroids; Z79.02 Long term (current) use of antithrombotics/antiplatelets; Z79.84 Long term (current) use of oral hypoglycemic drugs; Z79.899 Other long term (current) drug therapy; Z87.891 Personal history of nicotine dependence
CPT/HCPCS: 36415; 36600; 71045; 71250; 76770; 80048; 80053; 80076; 81001; 82805; 82947; 83605; 83690; 83735; 84145; 85025; 85379; 85610; 85730; 87040; 87428; 93005; 93306; 94010; 94640; 94660; 94668; 94760; J0282; J0360; J0696; J1644; J1650; J1815; J1938; J2185; J2919; J3370; J7040; J7050; J7060; J7512; J7613; J7626